=== PATIENT | female | born 1975 | race Caucasian/White ===

== ENCOUNTER → 2018-12-28 | Outpatient (CLI) | payer OTHER | LOC: M.MRI 13:10 | DX: M25.512 Pain in left shoulder (principal); G89.29 Other chronic pain ==

== ENCOUNTER → 2019-10-10 | Outpatient (CLI) | payer OTHER | LOC: M.MRI 13:30 | PROVIDERS: ATTEND Orthopaedic Surgery | DX: M75.81 Other shoulder lesions, right shoulder (principal); M25.511 Pain in right shoulder ==